=== PATIENT | female | born 1970 | race Caucasian/White ===

== ENCOUNTER → 2017-07-11 | Outpatient (CLI) | payer OTHER, SELFPAY ==
[~2017-07-11] MED LIST: AMBIEN 5 MG TABL5 M1 PO; AMITRIPTYLINE H10 M3 PO; HYDROCODONE-AP1 EAC6 PO; HYDROXYZINE HCL10 M1 PO; HYZAAR 50-12.51 EACH PO; LIORESAL 10 MG10 MG PO; MEDROL2 MG PO; NAPROSYN500 MG PO; NEURONTIN 300300 M1 PO; PREDNISONE 20 M20 M1 PO; TOPAMAX 100 MG100 MG PO; TRAMADOL 50 MG50 MG PO; VALIUM5 MG PO; ZPAK PO
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
== END ==
LOC: M.PC 03:25
DX: M25.512 Pain in left shoulder (principal); F41.9 Anxiety disorder, unspecified; F07.81 Postconcussional syndrome; G56.03 Carpal tunnel syndrome, bilateral upper limbs; I10 Essential (primary) hypertension

== ENCOUNTER 2020-01-15 12:09 | Inpatient (IN) | payer BC ==
[~2020-01-15] VITALS: Ht 147.3 cm; Wt 77.2 kg
[2020-01-15 12:43] VITALS: BP 129/82
[2020-01-15 14:06] LABS: ABSOLUTE BASOPHILS 0.3 thou/uL (0.0-0.2); ABSOLUTE LYMPHOCYTES 4.7 thou/uL (0.8-5.3); ABSOLUTE MONOCYTES 1.5 thou/uL (0.0-1.2); ABSOLUTE NEUTROPHILS 13.5 thou/uL (1.6-8.1); BASOPHILS 1.6 %; EOSINOPHILS 0.2 %; HEMATOCRIT 40.7 % (37.0-47.0); HEMOGLOBIN 13.6 gm/dL (12.0-15.0); LYMPHOCYTES 23.5 %; MCH 28.8 pg (26.0-34.0); MCHC 33.5 g/dL (28.0-37.0); MONOCYTES 7.5 %; MPV 8.2 fl. (7.2-11.1); NUCLEATED RBCS 0 /100WBC; PLATELET COUNT* 538 thou/uL (150-400); POLYS 67.2 %; RBC 4.73 mil/uL (4.20-5.00); RDW-CV 13.3 % (10.5-14.5); WBC 20.1 thou/uL (4.0-11.0)
[2020-01-15 14:15] LABS: CALCIUM 9.8 mg/dL (8.5-10.1); CREATININE 0.9 mg/dL (0.6-1.3)
[2020-01-15 14:16] LABS: APTT 26.2 Seconds (25.0-31.3); PROTIME 10.7 Seconds (9.20-11.50)
[2020-01-15 14:18] LABS: POTASSIUM 2.4 mmol/L (3.5-5.1)
[2020-01-15 14:19] LABS: ALBUMIN 3.9 g/dL (3.4-5.0); TOTAL BILIRUBIN 0.5 mg/dL (<0.1-1.0); TOTAL PROTEIN 8.6 g/dL (6.4-8.2)
[2020-01-15 14:21] LABS: URINE BLOOD NEGATIVE (Negative); URINE CLARITY CLEAR; URINE COLOR YELLOW; URINE GLUCOSE-RANDOM NEGATIVE (Negative); URINE KETONES 1+ (Negative); URINE LEUKOCYTES NEGATIVE (Negative); URINE NITRITE NEGATIVE (Negative); URINE PROTEIN TRACE (Negative); URINE UROBILINOGEN 0.2 E.U./dl (0.2-1.0)
[2020-01-15 14:23] LABS: ICTOTEST (BILI CONFIRMATORY) Negative (Negative); URINE BILIRUBIN 1+ (Negative)
--- NOTE | 2020-01-15 16:46 | EKG ---
[place] [address] ELECTROCARDIOGRAM REPORT Name: CAPRICE RHODES Room: [place] [address] ADM IN [facility].#: [id number] Admission: 01/15/20 Attend Phys: Jessica Frye, Discharge: Date of : 72 Date of Service: 01/15/20 1427 Report #: [id number] THIS REPORT FOR: //name// [facility] ED Test Date: 2020-01-15 Test Time: 14:27:38 Pat Name: CAPRICE RHODES Department: Room: [facility] Gender: F Dockworker: [facility] : 1970 Requested By: Юлия Sanchez Order Number: [id number] MD: Cody Rodriguez Measurements Intervals [place] Rate: 80 P: 63 CA: 148 QRS: 51 QRSD: 122 T: 10 QT: 398 QTc: 460 Interpretive Statements Sinus rhythm Nonspecific intraventricular conduction delay Compared to ECG 12/22/2016 09:36:00 Intraventricular conduction delay now present Electronically Signed On 01-15-2020 16:46:42 CDT by Cody Rodriguez [email or web address] <ELECTRONICALLY SIGNED> By: Cody Rodriguez MD, FACC 01/15/20 1646 1427 1427 Cody Rodriguez MD, [facility] /EPI
[2020-01-15 19:15] VITALS: BP 112/70
[2020-01-15 20:06] VITALS: BP 115/70
[2020-01-15 20:30] VITALS: BP 117/83
[2020-01-16] VITALS: BP 109/64
[2020-01-16 04:00] VITALS: BP 91/55
[2020-01-16 05:17] LABS: HEMATOCRIT 34.2 % (37.0-47.0); MCH 29.1 pg (26.0-34.0); MCHC 33.3 g/dL (28.0-37.0); MCV 87.6 fL (80.0-100.0); MPV 8.4 fl. (7.2-11.1); RBC 3.91 mil/uL (4.20-5.00); RDW-CV 13.5 % (10.5-14.5)
[2020-01-16 05:35] LABS: ALBUMIN 2.6 g/dL (3.4-5.0); CREATININE 0.7 mg/dL (0.6-1.3); MAGNESIUM 1.6 mg/dL (1.8-2.4); TOTAL BILIRUBIN 0.7 mg/dL (<0.1-1.0); TOTAL PROTEIN 6.2 g/dL (6.4-8.2)
[2020-01-16 06:25] LABS: HEMOGLOBIN 11.4 gm/dL (12.0-15.0)
[2020-01-16 06:34] LABS: CALCIUM 7.5 mg/dL (8.5-10.1)
[2020-01-16 06:36] LABS: POTASSIUM 2.8 mmol/L (3.5-5.1)
[2020-01-16 08:00] VITALS: BP 111/85
[2020-01-16 12:00] VITALS: BP 106/72
[2020-01-16 20:00] VITALS: BP 107/69
[2020-01-17] VITALS: BP 94/66
[2020-01-17 05:01] LABS: ABSOLUTE BASOPHILS 0.1 thou/uL (0.0-0.2); ABSOLUTE EOSINOPHILS 0.2 thou/uL (0.0-0.7); ABSOLUTE LYMPHOCYTES 3.3 thou/uL (0.8-5.3); ABSOLUTE MONOCYTES 0.7 thou/uL (0.0-1.2); ABSOLUTE NEUTROPHILS 6.3 thou/uL (1.6-8.1); BASOPHILS 0.8 %; EOSINOPHILS 1.5 %; HEMATOCRIT 34.1 % (37.0-47.0); LYMPHOCYTES 31.3 %; MCH 28.6 pg (26.0-34.0); MCHC 32.4 g/dL (28.0-37.0); MCV 88.3 fL (80.0-100.0); MPV 8.5 fl. (7.2-11.1); NUCLEATED RBCS 0 /100WBC; PLATELET COUNT* 430 thou/uL (150-400); POLYS 59.4 %; RBC 3.86 mil/uL (4.20-5.00); RDW-CV 13.6 % (10.5-14.5); WBC 10.6 thou/uL (4.0-11.0)
[2020-01-17 05:12] LABS: ALBUMIN 2.7 g/dL (3.4-5.0); CALCIUM 8.2 mg/dL (8.5-10.1); CREATININE 0.8 mg/dL (0.6-1.3); POTASSIUM 3.1 mmol/L (3.5-5.1); TOTAL BILIRUBIN 0.5 mg/dL (<0.1-1.0); TOTAL PROTEIN 6.3 g/dL (6.4-8.2)
[2020-01-17 07:16] LABS: ESR (SEDRATE) 16 mm/hr (0-20)
[2020-01-17 08:00] VITALS: BP 103/66
[2020-01-17 15:21] VITALS: BP 109/78
[2020-01-17 19:45] VITALS: BP 130/76
[2020-01-17 23:57] VITALS: BP 109/64
[2020-01-18 03:58] VITALS: BP 132/91
[2020-01-18] MEDS ORDERED: TOPAMAX 100 MG100 MG PO (07:37)
[2020-01-18] MEDS ORDERED: MIRALAX17 GM PO (07:37)
[2020-01-18 07:46] VITALS: BP 107/75
[2020-01-18 09:49] VITALS: BP 107/75
[2020-01-18 10:21] VITALS: BP 107/75
--- NOTE | 2020-01-20 13:08 | PATH ---
[address] [address] PATHOLOGY RPT PROCEDURE Name: MARIBETH RHODES Room: [address] IN [facility].#: [id number] Admission: 01/15/20 Date of : 72 Discharge: 01/18/20 Report #: [id number] Path Case #: [id number] [facility] Accession Number: [id number] . 01 Material submitted: . PART A: colon - DESCENDING BIOPSY FOR BIOPSY FOR ISCHEMIC COLITIS. Modifiers: descending PART B: colon - SIGMOID BIOPSY FOR ISCHEMIC COLITIS. Modifiers: sigmoid . 01 Clinical history: . COLITIS, LEUKOCYTOSIS, HYPOKALEMIA . 02 Diagnosis: A. Descending colon biopsy: - Minimal active colitis, hyperplastic lymphoid follicles (Peyer's patches) and focal fresh hemorrhage, negative for cryptitis, granulomas and dysplasia. See comment. . B. Sigmoid biopsy: - Severe active colitis with erosion typical of ischemic colitis, negative for granulomas, viral inclusions and dysplasia. See comment. . (GLADIS:tasia; 01/20/2020) MBR 01/20/2020 1121 Local . 02 Comment: A. The descending biopsy (A) shows only minimal active inflammation evidenced by a few neutrophils scattered in the lamina propria without any more recognizable ischemic features and without basal lymphoplasmacytosis or crypt distortion. . B. The sigmoid biopsy (B) shows benign colonic mucosa with abundant active inflammation and erosion and atrophy of superficial mucosa with relative preservation of the deeper aspects of crypts where the lamina propria is also condensed, typical of ischemic colitis. There is also no significant basal lymphoplasmacytosis or crypt distortion to elevate a concern for chronic colitis/inflammatory bowel disease. . (GLADIS:tasia; 01/20/2020) . 02 Electronically signed: . Gilberto Montaño MD, Pathologist NPI- [id number] . 01 Gross description: . A. The specimen is received in formalin, labeled "Maribeth Rhodes, descending colon BX" and consists of 2 fragments of pink-dubois tissue measuring 0.2 x 0.2 cm and 0.5 x 0.2 cm [place] [address] PATHOLOGY RPT PROCEDURE Name: MARIBETH RHODES Y Room: [address] IN M.R.#: [id number] Admission: 01/15/20 Date of : 72 Discharge: 01/18/20 Report #: [id number] Path Case #: [id number] A1. . B. The specimen is received in formalin, labeled "Donte, Maribeth, sigmoid BX" and consists of 2 fragments of dubois tissue measuring 0 4 x 0.2 cm and 0.3 x 0.2 cm which are entirely submitted in B1. (SDY; 01/19/2020) SYU/SYU 01/20/2020 1115 Local . 02 Pathologist provided ICD-10: K52.9, K92.2 . 02 CPT . 429518, 429946 Specimen Comment: A courtesy copy of this report has been sent to [phone] Specimen Comment: [phone], Specimen Comment: Report sent to ,DR HAMILTON / DR ENNIS Performed at: [address], [place] [id number] MD Prasad Solis MD Phone: [phone] Performed at: 02 [facility] [address], [place], [place] [id number] MD Gilberto Montaño MD Phone: [phone]
== END 2020-01-18 10:32 | disposition home or self-care (01) | DRG 394 ==
LOC: M.ERS 12:09 → M.ORTHSURG 15:18 → M.TBA-ER 15:18 → M.2W 20:30 → M.ORTHSURG 01-17 19:39
PROVIDERS: Internal Medicine Gastroenterology; Physician Assistant; ADMIT Internal Medicine; ATTEND Internal Medicine
PROC: 0DBN8ZX Excision of Sigmoid Colon, Via Natural or Artificial Opening Endoscopic, Diagnostic (ICD-10-PCS; principal; 2020-01-17)
PROC: 0DBM8ZX Excision of Descending Colon, Via Natural or Artificial Opening Endoscopic, Diagnostic (ICD-10-PCS; principal; 2020-01-17)
DX: K55.9 Vascular disorder of intestine, unspecified (principal); D84.9 Immunodeficiency, unspecified; K63.3 Ulcer of intestine; K52.9 Noninfective gastroenteritis and colitis, unspecified; I10 Essential (primary) hypertension; K59.01 Slow transit constipation; E87.6 Hypokalemia; Z90.49 Acquired absence of other specified parts of digestive tract; Z79.899 Other long term (current) drug therapy

== ENCOUNTER → 2020-06-07 | Outpatient (CLI) | payer BC ==
[~2020-06-07] MED LIST changes: +MIRALAX17 GM PO
== END ==
LOC: M.LAB 15:36
PROVIDERS: ATTEND Podiatrist
DX: Z01.812 Encounter for preprocedural laboratory examination (principal); Z20.822 Contact with and (suspected) exposure to COVID-19

== ENCOUNTER → 2020-06-10 | Outpatient (CLI) | payer BC | LOC: M.LAB 05:39 | PROVIDERS: ATTEND Anesthesiology | DX: E87.6 Hypokalemia (principal) ==